=== PATIENT | male | born 1965 | race Caucasian/White ===

== ENCOUNTER 2017-03-11 05:29 | Inpatient (IN) | payer OTHER ==
[2017-03-05 16:33] VITALS: BMI 34.8
[~2017-03-11] VITALS: Ht 180.3 cm; Wt 111.4 kg
[2017-03-11] VITALS (28 sets, daily range): BP systolic 110–165; BP diastolic 64–89; PULSE 72–98; RESP 16–24; Ht 180.3 cm; Wt 111.4 kg
[2017-03-11] MEDS ORDERED: CEFAZOLIN 2 GM/50 ML (PMX) 50 ML IVPB ONE (06:00)
[2017-03-11] MEDS ORDERED: GELATIN SIZE 100 SPONGE ONE (06:51)
[2017-03-11] MEDS ORDERED: POLYMYXIN/BACITRACIN 1L IRRIG ONE (06:51)
[2017-03-11] MEDS ORDERED: BUPIVACAINE 0.25% (MPF) 30 ML INJ ONE (06:51)
[2017-03-11] MEDS ORDERED: THROMBIN 5000 UNIT VIAL ONE (06:51)
--- NOTE | 2017-03-11 06:53 | HPN ---
Date/Time of Note Date/Time of Note DATE: 03/11/17 TIME: 06:53 Interval H&P Admission Note Pt. seen H&P reviewed: No system changes MATHEW SHERMAN MD Mar 11, 2017 06:53
[2017-03-11] MEDS ORDERED: FENTAnyl 50 MCG/ML VIAL ONE (06:54)
[2017-03-11] MEDS ORDERED: CEFAZOLIN 1 GM INJ ONE (07:00)
[2017-03-11] MEDS ORDERED: ACET1TAB40 PO (07:21)
[2017-03-11] MEDS ORDERED: NAPR-773 PO (07:21)
[2017-03-11] MEDS ORDERED: LABETALOL HCL 20MG INJ ONE (07:35)
--- NOTE | 2017-03-11 08:01 | RADRPT ---
PROCEDURE: XR Lumbar Spine. CLINICAL INDICATION: Low back pain. TECHNIQUE: 1 lateral view of the lumbar spine available for review COMPARISON: None available FINDINGS: Surgical probe tips pointing at dorsal L4 and upper sacrum. IMPRESSION: Surgical probe tips pointing at dorsal L4 and upper sacrum. RPTAT: AA .Trever Cameron MD, Date Time Electronically viewed and signed by .Trever Cameron MD, on 03/11/2017 08:01 .T/
--- NOTE | 2017-03-11 08:03 | RADRPT ---
PROCEDURE: XR Lumbar Spine. CLINICAL INDICATION: Low back pain. TECHNIQUE: 1 lateral view of the lumbar spine available for review COMPARISON: None available FINDINGS: Surgical probes pointing at dorsal L3, L4, L5 with a surgical material overlying the expected locati on of the spinous processes. IMPRESSION: Surgical probes pointing at dorsal L3, L4, L5 with a surgical material overlying the expected locati on of the spinous processes. RPTAT: AA .Trever Cameron MD, MD Date Time Electronically viewed and signed by .Trever Cameron MD, on 03/11/2017 08:02 .T/
[2017-03-11] MEDS: RANITIDINE 150 MG TAB PO SCH ×3 (09:00→21:00)
[2017-03-11] MEDS ORDERED: LIDOCAINE 2% (SDV) 5 ML INJ ONE (09:42)
[2017-03-11] MEDS ORDERED: SUCCINYLCHOLINE CHLORIDE 100 MG/5 ML SYG IV ONE (09:42)
[2017-03-11] MEDS ORDERED: ROCURONIUM 50 MG INJ ONE (09:42)
[2017-03-11] MEDS ORDERED: SUGAMMADEX SODIUM 200 MG/2 ML VIAL IV ONE (09:42)
[2017-03-11] MEDS ORDERED: PROPOFOL 20 ML ONE (09:42)
[2017-03-11] MEDS ORDERED: ONDANSETRON 4 MG INJ IV PRN ×2 (10:00→10:30)
[2017-03-11] MEDS ORDERED: FENTAnyl 50 MCG/ML VIAL IV PRN ×3 (10:00)
[2017-03-11] MEDS ORDERED: METOCLOPRAMIDE 10 MG INJ IV PRN (10:00)
[2017-03-11] MEDS ORDERED: DIPHENHYDRAMINE 50 MG INJ IV PRN (10:00)
[2017-03-11] MEDS ORDERED: MEPERIDINE 25 MG INJ IV PRN (10:00)
[2017-03-11] MEDS ORDERED: HYDROmorphONE (0.2 MG/ML) 10ML SYG IV PRN ×2 (10:00)
[2017-03-11] MEDS: DEXTROSE 5%-0.45% NACL 1,000 ML IV SCH ×3 (10:25→22:26)
[2017-03-11] MEDS ORDERED: HYDROmorphONE 0.2 MG/ML PCA ONE (10:28)
[2017-03-11] MEDS ORDERED: ZOLPIDEM 5 MG TAB PO PRN (10:30)
[2017-03-11] MEDS ORDERED: ACETAMINOPHEN 325 MG TAB PO PRN (10:30)
[2017-03-11] MEDS ORDERED: AL HYDROX/MG HYDROX/SIMETH 30 ML CUP PO PRN (10:30)
[2017-03-11] MEDS ORDERED: HYDROmorphONE 0.2 MG/ML PCA IV SCH (10:30)
[2017-03-11] MEDS ORDERED: HYDROCODONE/APAP (5/325) TAB PO PRN (10:30)
[2017-03-11] MEDS ORDERED: DIAZEPAM 5 MG/ML SYG IM PRN (10:30)
[2017-03-11] MEDS ORDERED: BETHANECHOL 25 MG TAB PO PRN (10:30)
[2017-03-11] MEDS ORDERED: CEPASTAT LOZENGE MT PRN (10:30)
[2017-03-11] MEDS ORDERED: NACL 0.9% 3 ML SYG IV SCH (10:30)
[2017-03-11] MEDS: HYDROmorphONE (0.2 MG/ML) 10ML SYG IV PRN ×3 (10:30→11:02)
[2017-03-11] MEDS ORDERED: PROCHLORPERAZINE 10 MG TAB PO PRN (10:30)
[2017-03-11] MEDS ORDERED: DIPHENHYDRAMINE 50 MG CAP PO PRN (10:30)
[2017-03-11] MEDS ORDERED: TRIMETHOBENZAMIDE 100 MG/ML VIAL IM PRN (10:30)
[2017-03-11] MEDS ORDERED: NALOXONE (0.4 MG/ML) INJ IV PRN (10:30)
--- NOTE | 2017-03-11 10:45 | SIPON ---
Date/Time of Note Date/Time of Note DATE: 03/11/17 TIME: 10:29 Operative Report Preoperative Diagnosis Lumbar spinal stenosis at L3-L4 and L5 Herniated disc L4-5 on the right Postoperative Diagnosis Same Operation/Procedure Performed Central decompressive laminectomy at L3 Central decompressive laminectomy at L4 Central decompressive laminectomy at L5 Microdiscectomy L4-5 on the right Baxano foraminal decompression L4-5 on the right Medial facetectomy and foraminotomy L3-4 L4-5 L5-S1 bilaterally Cosmetic wound closure (12 cm) Lateral localizing lumbar radiographs (2) Intraoperative nerve monitoring (2-1/2 hours) Surgeon see signature line junior assistant manager Solomon Rios MD Anesthesia: general Estimated blood loss: 50 - 100 ml's Transfusion Required none Specimen Spinous processes of L3-L4 and L5 Herniated disc L4-5 on the right Grafts/Implants none Complications none MATHEW SHERMAN MD Mar 11, 2017 10:39
--- NOTE | 2017-03-11 11:15 | OPR ---
DATE OF OPERATION: 03/11/2017 PREOPERATIVE DIAGNOSES: 1. Lumbar spinal stenosis at L3, L4, and L5. 2. Herniated disk L4-L5 on the right (foraminal). 3. Foraminal stenosis L4-L5 on the right. POSTOPERATIVE DIAGNOSES: 1. Lumbar spinal stenosis at L3, L4, and L5. 2. Herniated disk L4-L5 on the right (foraminal). 3. Foraminal stenosis L4-L5 on the right. OPERATION PERFORMED: 1. Central decompressive laminectomy at L3. 2. Central decompressive laminectomy at L4. 3. Central decompressive laminectomy at L5. 4. Microdiskectomy, L4-L5 on the right. 5. Baxano transforaminal root decompression L4 on the right. 6. Medial facetectomy and foraminotomy, L3-L4, L4-L5, L5-S1 bilaterally. 7. Cosmetic wound closure (12 cm). 8. Lateral localized lumbar radiographs (2). 9. Intraoperative nerve monitoring (2.5 hours) SURGEON: Christian Sim MD FISHERIES ENFORCEMENT OFFICER: Zak Black MD ANESTHESIA: General endotracheal. ANESTHESIOLOGIST: Dr. Pantoja ESTIMATED BLOOD LOSS: 75 mL, none replaced. DRAINS: Two medium Hemovac drains employed. COMPLICATIONS: None. PERTINENT HISTORY AND PHYSICAL: This is a 51-year-old male who sustained an injury to his back in t he course of his employment on 01/21/2016. He has had extensive conservative care since that time, has remained symptomatic with moderately severe back and bilateral leg complaints, right greater th an left, which have been unrelieved by conservative management. He has undergone a number of diagno stic studies including an MRI of the lumbar spine, which demonstrated lumbar spinal stenosis at L3, L4, and L5 with marked foraminal stenosis at L4-L5 on the right and a foraminal disk herniation at L 4-L5 on the right. Treatment options were discussed with the patient, who elected to proceed with surgery. OPERATIVE FINDINGS AT SURGERY: A lumbar spinal stenosis at L3 (moderately severe) and the lateral r ecesses at L4 and L5 were present. There was a herniation at L4-L5 on the right. There was some ce ntral left-sided disk bulging at L5-S1 that did not merit removal. The baseline intraoperative nerv e monitoring revealed a decrease in the left L3 potential of 40%, the right L3 potential of 20%, the right L4 potential of 50%, the left L5 potential of 20%, the right L5 potential of 40%. These all returned to normal at the completion of surgery. OPERATIVE PROCEDURE: With the patient in supine position after satisfactory induction of general en dotracheal anesthesia by Dr. Pantoja, the patient was turned to the prone kneeling position on the Lamy frame. All pressure points were carefully padded. Back was prepped and draped in usual s terile fashion. Athrombic pumps were applied to the legs below the knees to prevent venous stasis d uring and after procedure. An indwelling Alvarez catheter was also placed preoperatively to facilitat e bladder drainage during and after the procedure. Two spinal needles were placed next to the L3 an d L5 spinous processes, lateral roentgenogram was taken which confirmed anatomic localization. A 12 cm incision then carried out midline from L3 to sacrum through skin and subcutaneous tissue to the deep fascia. Superficial retractors were placed and hemostasis secured with electrocautery. Throug hout the procedure, copious amounts of antibacterial irrigating solution were used to periodically i rrigate the wound. The fascia was incised in midline with a hot knife and a bilateral subperiosteal dissection carried out from L3 to sacrum. Deep retractors were placed and deep hemostasis secured with electrocautery. A second intraoperative radiograph was taken with Jack clamps placed in what was felt to be the spinous process of L3, L4, and L5. This was confirmed with second x-ray. A casi tral decompressive laminectomy was then carried out at L5, L4 and L3 using a Shira right-angle ele zavala rongeur, Jacinto rongeur, Kerrison punches and curettes. The operating microscope was then moved into place. A medial facetectomy and foraminotomy was accomplished at L3-L4, L4-L5, and L5-S1 using small hand osteotome, mallet, Kerrison punches and curettes. Attention was then turned to the L4-L5 disk where the L5 root on the right was mobilized medially wi th a blunt [place] elevator and protected with Ely nerve root retractor using microdissection max hnique. This revealed a herniation of the L4-L5 disk. A 15 blade knife was used to cut a rectangul ar window in the annulus and posterior longitudinal ligament and multiple degenerative disk fragment s were harvested with pituitary rongeurs and sent to laboratory for pathologic study. Additional fr agments were harvested using Susan curettes and a 0 Anca forward angled curet. A thorough searc h of the floor of the canal was made with an arthroscopic probe. No additional fragments were encou ntered. The epidural hemostasis was secured with bipolar electrocautery on low setting. The L5-S1 disk on the left was inspected, but was somewhat bulging, but not herniated and did not merit remova l. The foramen at L4 on the right was still somewhat stenotic at this point and the Baxano instrume ntation was brought onto the field. The Ipsi probe was placed into the foramen, and the guidewire p assed in the usual fashion. The neuro probe was then used to isolate the exiting L4 nerve root. Wi th this having been assured, the 7.5 mm Baxano rasp was inserted into the foramen and multiple recip rocations carried out to enlarge the posterior aspect of the foramen. The instrumentation was withd rawn. The foramen was flooded with 20 mL of irrigating solution and hemostasis was once again to ob tain with bipolar electrocautery on low setting. The wound was then closed in layers after the anes thesiologist performed a Valsalva maneuver at 40 mmHg during which there was no evidence of spinal f luid leakage. The wound was closed over 2 medium Hemovac drains, one below the fascia and one above the fascia using #1 Vicryl Stratafix sutures in deep paralumbar musculature and deep fascia of back , 2-0 Stratafix sutures on the subcutaneous tissue, and a 4-0 Vicryl subcuticular cosmetic closing s uture on the skin. Dermabond and sterile compressive dressings were applied. Patient having tolera asuncion procedure well, was then turned to supine position onto his bed and extubated by Dr. Pantoja. He was transported to the recovery room in satisfactory condition. At the conclusion of the proced ure, sponge, instrument, and needle counts were all correct. NEED FOR BENCH EXAMINER: During this spinal surgical procedure, my sales assistant entertainment and media was used to retrac t and protect the spinal nerves and dural sac. My sales assistant entertainment and media also employed the suction catheters to e vacuate blood from the surgical field to improve visualization of the neural structures. The assista nt was medically necessary to facilitate the completion of the surgery in a safe and expeditious man ner. State of [place] regulations, as well as hospital bylaws, preclude the use of non-licensed [facility] care personnel such as operating room technicians, to perform these functions. Throughout the procedure, neural monitoring was carried out by [employer] including EMG, SSEP and MEP monitoring of the L3, L4, L5 and S1 nerve roots bilaterally along with s meghana cord potentials. These were interpreted by neurologist employed by [employer]. Dictated By: CHRISTIAN SIM MD TM/NTS Conf#: [id number] DID#: [id number] CC: ZAK BLACK MD; RAYSA CALL MD; CHRISTIAN SIM MD;*End*
[2017-03-11] MEDS: CEFAZOLIN 1 GM/50 ML (PMX) 50 ML IVPB SCH ×2 (11:53→17:46)
--- NOTE | 2017-03-11 14:15 | CONS ---
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 Monitor (2) Lumbar spinal stenosis Status: Resolved Comment: Per primary team (3) Lumbar herniated disc Status: Resolved Comment: Per primary team (4) Aftercare following surgery of the musculoskeletal system Status: Acute Comment: Doing well, POD#0. Cont. current care. Will monitor for medical issues should they arise. Defer to primary team for PT and pain management. Will follow. Consultation Date/Type/Reason Admit Date/Time Mar 11, 2017 at 05:29 Date of Consultation: Mar 11, 2017 Type of Consultation: Medicine Reason for Consultation Medical Management Referring Provider: MATHEW SHERMAN Hx of Present Illness Pt. in [facility] until 1 y. ago when he was at work and someone accidently dropped a fiberglass mold on him. Twisted his ankle which has healed but he has had problems w/ back since then. Pt. has been through PT and pain meds. Had 2 MRI' s/ Showed both spinal stenosis and HD. Now s/p L3-L5 lumbar lami w/ microdiskectomy L5-S1. POD#0. Legs feel better. No complaints. Constitutional: improved, no complaints Eyes: no complaints ENT: no complaints Respiratory: no complaints Cardiovascular: no complaints Gastrointestinal: no complaints Genitourinary: no complaints Musculoskeletal: back pain Neurologic: no complaints Past Medical History Medical History: no pertinent history Past Surgical History Past Surgical Hx: no surgical history Family History Significant Family History: heart disease (father), other (Alzheimer's in mother) Social History chastity. [place], in [employer] since 1981, works as business office manager of [employer] , , 4 children Alcohol Use: occasionally Smoking Status: Never smoker Drug Use: none Exam/Review of Systems Vital Signs Vitals VS - Last 72 Hours, by Label Date Time Temp Pulse Resp B/P Pulse Ox O2 Delivery O2 Flow Rate FiO2 03/11/17 12:00 Nasal Cannula 2.0 03/11/17 11:45 97.9 91 18 130/78 98 03/11/17 11:29 92 19 128/73 95 Nasal Cannula 4.0 03/11/17 11:24 94 20 134/84 91 Nasal Cannula 4.0 03/11/17 11:19 98 16 146/80 97 Nasal Cannula 4.0 03/11/17 11:14 96 20 146/86 97 Nasal Cannula 4.0 03/11/17 11:09 94 19 140/86 98 Nasal Cannula 4.0 03/11/17 11:04 94 19 147/86 96 Nasal Cannula 4.0 03/11/17 10:59 92 21 135/89 96 Nasal Cannula 4.0 03/11/17 10:54 92 22 131/77 95 Nasal Cannula 4.0 03/11/17 10:49 92 23 131/73 93 Nasal Cannula 4.0 03/11/17 10:44 88 19 121/84 93 Nasal Cannula 4.0 03/11/17 10:39 82 16 120/83 100 Mask 10.0 03/11/17 10:34 82 21 126/78 98 Mask 10.0 03/11/17 10:29 84 24 114/81 99 Mask 10.0 03/11/17 10:23 88 24 133/80 100 Mask 10.0 03/11/17 10:19 98.4 03/11/17 10:18 92 17 129/76 97 Mask 10.0 03/11/17 10:15 Simple Mask 8.0 03/11/17 10:15 97.9 88 18 128/74 100 Mask 10.0 03/11/17 07:03 97.4 72 18 133/71 100 Room Air Vital Signs Date Time Temp Pulse Resp B/P Pulse Ox O2 Delivery O2 Flow Rate FiO2 03/11/17 12:00 Nasal Cannula 2.0 03/11/17 11:45 97.9 91 18 130/78 98 Exam Constitutional: alert, obese, oriented Psych: nl mood/affect, no complaints Eyes: EOMI, PERRL, nl conjunctiva, nl lids, nl sclera ENMT: mucosa pink and moist, nl external ears & nose Neck: non-tender, supple, No bruits, No masses, No thyromegaly Respiratory: clear to auscultation, normal air movement Cardiovascular: nl pulses, regular rate and rhythm, No edema, No murmurs/extra sounds, No rub Gastrointestinal: bowel sounds, nl liver, spleen, non-tender, soft, No mass, No rebound or guarding Musculoskeletal: nl extremities to inspection Extremities: normal pulses, No clubbing, No cyanosis, No edema Neurological: SENIOR C SOFTWARE ENGINEER II-XII intact, nl mental status, nl speech, nl strength Medications Medications Current Medications Ranitidine HCl 150 mg 150 mg BID PO ; Start 03/11/17 at 09:00 Dextrose/Sodium Chloride (D5-1/2ns) 1,000 ml @ 100 mls/hr Q10H IV Last administered on 03/11/17 11:54; Admin Dose 100 MLS/HR; Start 03/11/17 at 10: 25 Acetaminophen/ Hydrocodone Bitart ([place] (5/325)) 1 tab Q4H PRN PO PAIN LEVEL 1 -5; Start 03/11/17 at 10:30; Status Future Hold Acetaminophen/ Hydrocodone Bitart 2 tab 2 tab Q4H PRN PO PAIN LEVEL 6-10; Start 03/11/17 at 10:30; Status Future Hold Cefazolin Sodium (Ancef 1 Gm/50 ml (Pmx)) 50 ml @ 100 mls/hr Q6 IVPB Last administered on 03/11/17 11:53; Admin Dose 100 MLS/HR; Start 03/11/17 at 12: 00; Stop 03/12/17 at 06:29 Zolpidem Tartrate (Ambien) 5 mg HS PRN PO INSOMNIA; Start 03/11/17 at 10:30 Prochlorperazine (Compazine) 10 mg Q4H PRN PO NAUSEA AND/OR VOMITING; Start at 10:30 Trimethobenzamide HCl (Tigan) 200 mg Q4H PRN IM NAUSEA AND/OR VOMITING; Start 03/11/17 at 10:30 Ondansetron HCl (Zofran Inj) 4 mg Q6H PRN IV NAUSEA AND/OR VOMITING; Start at 10:30 Al Hydrox/Mg Hydrox/Simethicone (Mag-Al Plus) 15 ml Q4H PRN PO CONSTIPATION; Start 03/11/17 at 10:30 Docusate Sodium (Colace) 100 mg BID PO ; Start 03/12/17 at 09:00 Acetaminophen (Tylenol Tab) 650 mg Q4H PRN PO TEMP GREATER THAN 101F OR WELCH; Start 03/11/17 at 10:30 Ascorbic Acid (Vitamin C) 1,000 mg BID PO ; Start 03/12/17 at 09:00 Ferrous Sulfate (Ferrous Sulfate (Ec)) 325 mg TID PO ; Start 03/12/17 at 09:00 Ranitidine HCl (Zantac) 150 mg BID PO ; Start 03/11/17 at 21:00 Diazepam (Valium) 5 mg Q4H PRN PO MUSCLE SPASMS; Start 03/11/17 at 10:30 Diazepam (Valium) 5 mg Q4H PRN IM MUSCLE SPASMS; Start 03/11/17 at 10:30 Phenol (Cepastat Lozenge) 1 lozenge PRN PRN MT SORE THROAT Last administered on 03/11/17 11:54; Admin Dose 1 LOZENGE; Start 03/11/17 at 10:30 Bethanechol Chloride (Urecholine) 25 mg PRN PRN PO UNABLE TO VOID; Start 03/11 at 10:30 Diphenhydramine HCl (Benadryl) 50 mg Q6H PRN PO PRURITUS; Start 03/11/17 at 10 :30 Hydromorphone HCl (Dilaudid REGISTER REPAIRER) Q4PCA IV Last administered on 03/11/17 11: 12; Admin Dose 6 MG; Start 03/11/17 at 10:30 Naloxone HCl (Narcan) 0.2 mg Q2M PRN IV RR 8 BREATHS/MIN OR LESS; Start at 10:30 RAYSA CALL MD Mar 11, 2017 14:15
[2017-03-11] MEDS: DIAZEPAM 5 MG TAB PO PRN ×2 (15:58→20:45)
[2017-03-12 00:14] VITALS: BP 117/65; RESP 18
[2017-03-12] MEDS: CEFAZOLIN 1 GM/50 ML (PMX) 50 ML IVPB SCH ×2 (01:25→05:58)
[2017-03-12] MEDS: DEXTROSE 5%-0.45% NACL 1,000 ML IV SCH ×2 (05:58→16:25)
[2017-03-12 06:24] LABS: HEMATOCRIT 42.7 % (42.0-52.0); HEMOGLOBIN 14.1 g/dl (14.0-18.0)
[2017-03-12 06:56] LABS: CALCIUM 8.5 mg/dl (8.4-10.2); CREATININE 0.86 mg/dl (0.61-1.24); POTASSIUM 3.8 mmol/L (3.5-5.1)
--- NOTE | 2017-03-12 07:02 | PN ---
Date/Time of Note Date/Time of Note DATE: 03/12/17 TIME: 07:01 Assessment/Plan Lines/Catheters IV Catheter Type (from Nrs): Peripheral IV Alvarze in Place (from Nrsg): Yes Subjective 24 Hr Interval Summary The patient is postop day #1 following a multilevel decompressive laminectomy from L3 to the sacrum. He is resting comfortably in bed. Neurovascular structures are intact distally. His H&H is unremarkable, and BMP is pending. His Hemovac output was 80 cc this morning and will be left in place. He will be mobilized as tolerated by physical therapy. Exam/Review of Systems Vital Signs Vitals Vital Signs Date Time Temp Pulse Resp B/P Pulse Ox O2 Delivery O2 Flow Rate FiO2 03/12/17 00:14 98.3 87 18 117/65 96 03/11/17 20:00 Nasal Cannula 03/11/17 14:45 2.0 Intake and Output 03/11/17 03/11/17 03/12/17 15:00 23:00 07:00 Intake Total 1550 ml 1990 ml 1490 ml Output Total 315 ml 900 ml 2180 ml Balance 1235 ml 1090 ml -690 ml Results Result Diagram: 03/12/17 0500 MATHEW SHERMAN MD Mar 12, 2017 07:02
[2017-03-12 08:00] VITALS: BP 131/68; RESP 18
[2017-03-12] MEDS ORDERED: BETHANECHOL 25 MG TAB PO PRN (08:00)
[2017-03-12] MEDS: ASCORBIC ACID 500 MG TAB PO SCH ×2 (08:44→20:02)
[2017-03-12] MEDS: DOCUSATE SODIUM 100 MG CAP PO SCH ×2 (08:45→20:01)
[2017-03-12] MEDS: FERROUS SULFATE (EC) 325 MG TAB PO SCH ×3 (08:45→20:01)
[2017-03-12] MEDS: RANITIDINE 150 MG TAB PO SCH ×4 (08:45→21:00)
[2017-03-12 09:36] LABS: ADD UMIC YES; UR ASCORBIC ACID NEGATIVE (NEGATIVE); UR BILIRUBIN (Dip) NEGATIVE (NEGATIVE); UR BLOOD (Dip) 1+ mg/dL (NEGATIVE); UR CLARITY CLEAR (CLEAR); UR COLOR STRAW (YELLOW); UR GLUCOSE (Dip) NEGATIVE (NEGATIVE); UR KETONES (Dip) NEGATIVE (NEGATIVE); UR LEUKOCYTE ESTERASE (Dip) NEGATIVE Leu/ul (NEGATIVE); UR MUCUS FEW /HPF (NONE SEEN); UR NITRITE (Dip) NEGATIVE (NEGATIVE); UR RBC 3 /HPF (0-5); UR SPECIFIC GRAVITY (Dip) 1.009 (1.003-1.030); UR TOTAL PROTEIN (Dip) NEGATIVE (NEGATIVE); UR UROBILINOGEN (Dip) NEGATIVE (NEGATIVE)
[2017-03-12] MEDS: ALLOPURINOL 300 MG TAB PO SCH (10:11)
[2017-03-12] MEDS ORDERED: COLCHICINE 0.6 MG TAB PO ONE ×2 (13:00→14:00)
--- NOTE | 2017-03-12 13:06 | CONS ---
Date/Time of Note Date/Time of Note DATE: 03/12/17 TIME: 13:01 Assessment/Plan Assessment/Plan Problems: (1) Hyperuricemia without signs of inflammatory arthritis and tophaceous disease Status: Chronic Comment: Started allopurinol this am. Immediate pain in R ankle. Possibly represents a gout acute flare. Will start colchicine 1.2 mg x 1 now, then 0.6 mg x 1 in 1 hour. Cont. colchicine 0.6 mg po daily starting tomorrow morning. (2) Aftercare following surgery of the musculoskeletal system Status: Acute Comment: Doing fair on POD#1. Still on ALL SOURCE INTELLIGENCE. Likely to be d/c'ed later. Prob. d/c tomorrow if o/w doing well. Consultation Date/Type/Reason Admit Date/Time Mar 11, 2017 at 05:29 Initial Consult Date 03/11/17 Type of Consultation: Medicine Reason for Consultation Medical management Referring Provider: MATHEW SHERMAN MD 24 HR Interval Summary Constitutional: improved, no complaints Detailed Summary Respiratory: no complaints Cardiovascular: no complaints Gastrointestinal: no complaints Genitourinary: no complaints Musculoskeletal: back pain, bone/joint pain (acute pain in R ankle, worse w/ walking) Neurologic: no complaints Exam/Review of Systems Vital Signs Vitals VS - Last 72 Hours, by Label Date Time Temp Pulse Resp B/P Pulse Ox O2 Delivery O2 Flow Rate FiO2 03/12/17 09:00 18 03/12/17 08:00 Nasal Cannula 2.0 03/12/17 08:00 97.8 66 18 131/68 100 03/12/17 00:14 98.3 87 18 117/65 96 03/11/17 20:33 98.6 65 18 110/64 98 03/11/17 20:00 Nasal Cannula 03/11/17 18:20 97.0 69 20 165/85 96 03/11/17 14:45 98.0 79 18 128/71 96 Nasal Cannula 2.0 03/11/17 14:40 98.9 76 18 121/70 97 03/11/17 13:45 97.9 84 18 133/68 96 Nasal Cannula 2.0 03/11/17 13:15 97.9 86 18 135/67 96 Nasal Cannula 2.0 03/11/17 12:45 97.8 78 18 126/72 96 Nasal Cannula 2.0 03/11/17 12:30 97.9 75 18 118/67 96 Nasal Cannula 2.0 03/11/17 12:15 97.9 87 18 120/67 96 Nasal Cannula 2.0 03/11/17 12:00 Nasal Cannula 2.0 03/11/17 12:00 97.9 73 18 118/71 96 Nasal Cannula 2.0 03/11/17 11:45 97.9 82 18 123/69 96 Nasal Cannula 2.0 03/11/17 11:45 97.9 91 18 130/78 98 03/11/17 11:29 92 19 128/73 95 Nasal Cannula 4.0 03/11/17 11:24 94 20 134/84 91 Nasal Cannula 4.0 03/11/17 11:19 98 16 146/80 97 Nasal Cannula 4.0 03/11/17 11:14 96 20 146/86 97 Nasal Cannula 4.0 03/11/17 11:09 94 19 140/86 98 Nasal Cannula 4.0 03/11/17 11:04 94 19 147/86 96 Nasal Cannula 4.0 03/11/17 10:59 92 21 135/89 96 Nasal Cannula 4.0 03/11/17 10:54 92 22 131/77 95 Nasal Cannula 4.0 03/11/17 10:49 92 23 131/73 93 Nasal Cannula 4.0 03/11/17 10:44 88 19 121/84 93 Nasal Cannula 4.0 03/11/17 10:39 82 16 120/83 100 Mask 10.0 03/11/17 10:34 82 21 126/78 98 Mask 10.0 03/11/17 10:29 84 24 114/81 99 Mask 10.0 03/11/17 10:23 88 24 133/80 100 Mask 10.0 03/11/17 10:19 98.4 03/11/17 10:18 92 17 129/76 97 Mask 10.0 03/11/17 10:15 Simple Mask 8.0 03/11/17 10:15 97.9 88 18 128/74 100 Mask 10.0 03/11/17 07:03 97.4 72 18 133/71 100 Room Air Vital Signs Date Time Temp Pulse Resp B/P Pulse Ox O2 Delivery O2 Flow Rate FiO2 03/12/17 09:00 18 03/12/17 08:00 Nasal Cannula 2.0 03/12/17 08:00 97.8 66 131/68 100 Intake and Output 03/11/17 03/11/17 03/12/17 14:59 22:59 06:59 Intake Total 1550 ml 1990 ml 1490 ml Output Total 315 ml 900 ml 2180 ml Balance 1235 ml 1090 ml -690 ml Exam Constitutional: alert, obese, oriented Psych: nl mood/affect, no complaints Respiratory: clear to auscultation, normal air movement Cardiovascular: nl pulses, regular rate and rhythm, No edema, No murmurs/extra sounds, No rub Gastrointestinal: bowel sounds, nl liver, spleen, non-tender, soft, No mass, No rebound or guarding Musculoskeletal: joint tenderness (R ankle) Extremities: No clubbing, No cyanosis, No edema Neurological: CYCLE DIRECTOR II-XII intact, nl mental status, nl speech, nl strength Results Result Diagram: 03/12/17 0500 03/12/17 0500 Results 24 hrs Laboratory Tests Test 03/12/17 05:00 03/12/17 08:43 Hemoglobin 14.1 Hematocrit 42.7 Sodium Level 139 Potassium Level 3.8 Chloride Level 101 Carbon Dioxide Level 29 Anion Gap 13 Blood Urea Nitrogen 8 Creatinine 0.86 Glucose Level 110 Calcium Level 8.5 Urine Color STRAW Urine Clarity CLEAR Urine pH 6.0 Urine Specific [place] 1.009 Urine Ketones NEGATIVE Urine Nitrite NEGATIVE Urine Bilirubin NEGATIVE Urine Urobilinogen NEGATIVE Urine Leukocyte Esterase NEGATIVE Urine Microscopic RBC 3 Urine Microscopic WBC 1 Urine Mucus FEW A Urine Hemoglobin 1+ H Urine Glucose NEGATIVE Urine Total Protein NEGATIVE Medications Medications Current Medications Ranitidine HCl 150 mg 150 mg BID PO Last administered on 03/12/17 08:45; Admin Dose 150 MG; Start 03/11/17 at 09:00 Dextrose/Sodium Chloride (D5-1/2ns) 1,000 ml @ 100 mls/hr Q10H IV Last administered on 03/12/17 05:58; Admin Dose 100 MLS/HR; Start 03/11/17 at 10: 25 Acetaminophen/ Hydrocodone Bitart ([place] (5/325)) 1 tab Q4H PRN PO PAIN LEVEL 1 -5; Start 03/11/17 at 10:30; Status Future Hold Acetaminophen/ Hydrocodone Bitart ([place] (5/325)) 2 tab Q4H PRN PO PAIN LEVEL 6 -10; Start 03/11/17 at 10:30; Status Future Hold Zolpidem Tartrate (Ambien) 5 mg HS PRN PO INSOMNIA; Start 03/11/17 at 10:30 Prochlorperazine (Compazine) 10 mg Q4H PRN PO NAUSEA AND/OR VOMITING; Start at 10:30 Trimethobenzamide HCl (Tigan) 200 mg Q4H PRN IM NAUSEA AND/OR VOMITING; Start 03/11/17 at 10:30 Ondansetron HCl (Zofran Inj) 4 mg Q6H PRN IV NAUSEA AND/OR VOMITING; Start at 10:30 Al Hydrox/Mg Hydrox/Simethicone (Mag-Al Plus) 15 ml Q4H PRN PO CONSTIPATION; Start 03/11/17 at 10:30 Docusate Sodium (Colace) 100 mg BID PO Last administered on 03/12/17 08:45; Admin Dose 100 MG; Start 03/12/17 at 09:00 Acetaminophen (Tylenol Tab) 650 mg Q4H PRN PO TEMP GREATER THAN 101F OR WELCH; Start 03/11/17 at 10:30 Ascorbic Acid (Vitamin C) 1,000 mg BID PO Last administered on 03/12/17 08:44 ; Admin Dose 1,000 MG; Start 03/12/17 at 09:00 Ferrous Sulfate (Ferrous Sulfate (Ec)) 325 mg TID PO Last administered on 03/12 08:45; Admin Dose 325 MG; Start 03/12/17 at 09:00 Ranitidine HCl (Zantac) 150 mg BID PO ; Start 03/11/17 at 21:00 Diazepam (Valium) 5 mg Q4H PRN PO MUSCLE SPASMS Last administered on 20:45; Admin Dose 5 MG; Start 03/11/17 at 10:30 Diazepam (Valium) 5 mg Q4H PRN IM MUSCLE SPASMS; Start 03/11/17 at 10:30 Phenol (Cepastat Lozenge) 1 lozenge PRN PRN MT SORE THROAT Last administered on 03/11/17 11:54; Admin Dose 1 LOZENGE; Start 03/11/17 at 10:30 Diphenhydramine HCl (Benadryl) 50 mg Q6H PRN PO PRURITUS; Start 03/11/17 at 10 :30 Hydromorphone HCl (Dilaudid ALL SOURCE INTELLIGENCE) Q4PCA IV Last administered on 03/11/17 11: 12; Admin Dose 6 MG; Start 03/11/17 at 10:30 Naloxone HCl (Narcan) 0.2 mg Q2M PRN IV RR 8 BREATHS/MIN OR LESS; Start at 10:30 Bethanechol Chloride (Urecholine) 25 mg PRN PRN PO UNABLE TO VOID Last administered on 03/12/17 08:46; Admin Dose 25 MG; Start 03/12/17 at 08:00 Allopurinol (Zyloprim) 300 mg DAILY PO Last administered on 03/12/17 10:11; Admin Dose 300 MG; Start 03/12/17 at 09:00 RAYSA CALL MD Mar 12, 2017 13:05
[2017-03-12 14:26] VITALS: BP 128/70; RESP 18
[2017-03-12] MEDS: HYDROCODONE/APAP (5/325) TAB PO PRN ×2 (17:13→23:54)
[2017-03-12 19:50] VITALS: BP 113/60; RESP 18
[2017-03-13] MEDS ORDERED: COLCHICINE 0.6 MG TAB PO ONE (00:30)
[2017-03-13 02:06] VITALS: BP 119/57; RESP 18
[2017-03-13] MEDS: DEXTROSE 5%-0.45% NACL 1,000 ML IV SCH ×2 (02:25→12:25)
--- NOTE | 2017-03-13 07:04 | PN ---
Date/Time of Note Date/Time of Note DATE: 03/13/17 TIME: 07:00 Assessment/Plan Lines/Catheters IV Catheter Type (from Nrsg): Peripheral IV Alvarez in Place (from Nrsg): No Subjective 24 Hr Interval Summary Patient is postop day #2 following a multilevel decompressive laminectomy from L3 to the sacrum. He is resting comfortably in bed. He has some pain and swelling in his right ankle. He has been started on anti-gout medication, and feels that his ankle is improving. Neurovascular structures are intact distally. He will be mobilized as tolerated by physical therapy. I anticipate he can be discharged home later today if cleared by physical therapy and internal medicine. Strict discharge precautions instructions and follow-up arrangements have been made. His temperature this morning was 99.7, and we will observe her carefully Exam/Review of Systems Vital Signs Vitals Vital Signs Date Time Temp Pulse Resp B/P Pulse Ox O2 Delivery O2 Flow Rate FiO2 03/13/17 02:06 99.7 72 18 119/57 94 03/12/17 20:20 Nasal Cannula 2.0 Intake and Output 03/12/17 03/12/17 03/13/17 15:00 23:00 07:00 Intake Total 1880 ml 800 ml Output Total 2700 ml 1500 ml Balance -820 ml -700 ml Results Result Diagram: 03/12/17 0500 03/12/17 0500 MATHEW SHERMAN MD Mar 13, 2017 07:04
[2017-03-13 07:12] VITALS: BP 114/60; RESP 18
[2017-03-13] MEDS: ALLOPURINOL 300 MG TAB PO SCH (08:45)
[2017-03-13] MEDS: FERROUS SULFATE (EC) 325 MG TAB PO SCH ×2 (08:46→13:00)
[2017-03-13] MEDS: DOCUSATE SODIUM 100 MG CAP PO SCH (08:46)
[2017-03-13] MEDS: ASCORBIC ACID 500 MG TAB PO SCH (08:46)
[2017-03-13] MEDS: RANITIDINE 150 MG TAB PO SCH ×2 (08:46→08:47)
[2017-03-13] MEDS: HYDROCODONE/APAP (5/325) TAB PO PRN ×2 (08:46→12:51)
[2017-03-13] MEDS ORDERED: COLCHICINE 0.6 MG TAB PO SCH (09:00)
[2017-03-13 12:51] VITALS: BP 126/71; PULSE 79; RESP 20
[2017-03-13] MEDS ORDERED: Colchicine PO (13:36)
[2017-03-13] MEDS ORDERED: ALLO300T2 PO (13:36)
--- NOTE | 2017-03-13 13:41 | CONS ---
Date/Time of Note Date/Time of Note DATE: 03/13/17 TIME: 13:37 Assessment/Plan Assessment/Plan Problems: (1) Drug-induced gout, right ankle and foot Status: Acute Comment: Responding to colchicine. Will continue this as outpt. bid. 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 allopurinol. Once colchicine resolves, hopefully allopurinol will prevent repeat attack (3) Aftercare following surgery of the musculoskeletal system Status: Acute Comment: Doing well POD#2. Ambulating. Tolerating surgical outcome well. Feels improved. Ok for d/c from med standpoint if ok w/ primary team Consultation Date/Type/Reason Admit Date/Time Mar 11, 2017 at 05:29 Initial Consult Date 03/11/17 Type of Consultation: Medicine Reason for Consultation Medical Management Referring Provider: MATHWE SHERMAN MD 24 HR Interval Summary Constitutional: improved (able to ambulate), no complaints Detailed Summary Respiratory: no complaints Cardiovascular: no complaints Gastrointestinal: no complaints Genitourinary: no complaints Musculoskeletal: back pain (minimal, well-controlled), bone/joint pain (R medial ankle, improved since yesterday, colchicine helpful) Neurologic: no complaints Exam/Review of Systems Vital Signs Vitals VS - Last 72 Hours, by Label Date Time Temp Pulse Resp B/P Pulse Ox O2 Delivery O2 Flow Rate FiO2 03/13/17 07:12 98.6 75 18 114/60 94 03/13/17 02:06 99.7 72 18 119/57 94 03/12/17 20:20 Nasal Cannula 2.0 03/12/17 19:50 98.8 78 18 113/60 98 03/12/17 17:19 16 03/12/17 14:26 98.0 70 18 128/70 96 03/12/17 13:00 18 03/12/17 09:00 18 03/12/17 08:00 Nasal Cannula 2.0 03/12/17 08:00 97.8 66 18 131/68 100 03/12/17 00:14 98.3 87 18 117/65 96 03/11/17 20:33 98.6 65 18 110/64 98 03/11/17 20:00 Nasal Cannula 03/11/17 18:20 97.0 69 20 165/85 96 03/11/17 14:45 98.0 79 18 128/71 96 Nasal Cannula 2.0 03/11/17 14:40 98.9 76 18 121/70 97 03/11/17 13:45 97.9 84 18 133/68 96 Nasal Cannula 2.0 03/11/17 13:15 97.9 86 18 135/67 96 Nasal Cannula 2.0 03/11/17 12:45 97.8 78 18 126/72 96 Nasal Cannula 2.0 03/11/17 12:30 97.9 75 18 118/67 96 Nasal Cannula 2.0 03/11/17 12:15 97.9 87 18 120/67 96 Nasal Cannula 2.0 03/11/17 12:00 Nasal Cannula 2.0 03/11/17 12:00 97.9 73 18 118/71 96 Nasal Cannula 2.0 03/11/17 11:45 97.9 82 18 123/69 96 Nasal Cannula 2.0 03/11/17 11:45 97.9 91 18 130/78 98 03/11/17 11:29 92 19 128/73 95 Nasal Cannula 4.0 03/11/17 11:24 94 20 134/84 91 Nasal Cannula 4.0 03/11/17 11:19 98 16 146/80 97 Nasal Cannula 4.0 03/11/17 11:14 96 20 146/86 97 Nasal Cannula 4.0 03/11/17 11:09 94 19 140/86 98 Nasal Cannula 4.0 03/11/17 11:04 94 19 147/86 96 Nasal Cannula 4.0 03/11/17 10:59 92 21 135/89 96 Nasal Cannula 4.0 03/11/17 10:54 92 22 131/77 95 Nasal Cannula 4.0 03/11/17 10:49 92 23 131/73 93 Nasal Cannula 4.0 03/11/17 10:44 88 19 121/84 93 Nasal Cannula 4.0 03/11/17 10:39 82 16 120/83 100 Mask 10.0 03/11/17 10:34 82 21 126/78 98 Mask 10.0 03/11/17 10:29 84 24 114/81 99 Mask 10.0 03/11/17 10:23 88 24 133/80 100 Mask 10.0 03/11/17 10:19 98.4 03/11/17 10:18 92 17 129/76 97 Mask 10.0 03/11/17 10:15 Simple Mask 8.0 03/11/17 10:15 97.9 88 18 128/74 100 Mask 10.0 03/11/17 07:03 97.4 72 18 133/71 100 Room Air Vital Signs Date Time Temp Pulse Resp B/P Pulse Ox O2 Delivery O2 Flow Rate FiO2 03/13/17 07:12 98.6 75 18 114/60 94 03/12/17 20:20 Nasal Cannula 2.0 Intake and Output 03/12/17 03/12/17 03/13/17 15:00 23:00 07:00 Intake Total 1880 ml 800 ml Output Total 2700 ml 1500 ml Balance -820 ml -700 ml Exam Constitutional: alert, obese, oriented Psych: nl mood/affect, no complaints Respiratory: clear to auscultation, normal air movement Cardiovascular: nl pulses, regular rate and rhythm, No edema, No murmurs/extra sounds, No rub Gastrointestinal: bowel sounds, nl liver, spleen, non-tender, soft, No mass, No rebound or guarding Musculoskeletal: joint tenderness (R medial ankle, (+) pain w/ passive movement ), swelling (and redness of R medial ankle), No nl extremities to inspection Extremities: normal pulses, No clubbing, No cyanosis, No edema Neurological: TAPE DUPLICATOR II-XII intact, nl mental status, nl speech, nl strength Results Result Diagram: 03/12/17 0500 03/12/17 0500 Medications Medications Current Medications Ranitidine HCl 150 mg 150 mg BID PO Last administered on 03/13/17 08:46; Admin Dose 150 MG; Start 03/11/17 at 09:00 Dextrose/Sodium Chloride (D5-1/2ns) 1,000 ml @ 100 mls/hr Q10H IV Last administered on 03/12/17 05:58; Admin Dose 100 MLS/HR; Start 03/11/17 at 10: 25 Acetaminophen/ Hydrocodone Bitart ([place] (5/325)) 1 tab Q4H PRN PO PAIN LEVEL 1 -5; Start 03/11/17 at 10:30; Status Future hold Acetaminophen/ Hydrocodone Bitart ([place] (5/325)) 2 tab Q4H PRN PO PAIN LEVEL 6 -10 Last administered on 03/13/17 12:51; Admin Dose 2 TAB; Start 03/11/17 at 10:30; Status Future hold Zolpidem Tartrate (Ambien) 5 mg HS PRN PO INSOMNIA; Start 03/11/17 at 10:30 Prochlorperazine (Compazine) 10 mg Q4H PRN PO NAUSEA AND/OR VOMITING; Start at 10:30 Trimethobenzamide HCl (Tigan) 200 mg Q4H PRN IM NAUSEA AND/OR VOMITING; Start 03/11/17 at 10:30 Ondansetron HCl (Zofran Inj) 4 mg Q6H PRN IV NAUSEA AND/OR VOMITING; Start at 10:30 Al Hydrox/Mg Hydrox/Simethicone (Mag-Al Plus) 15 ml Q4H PRN PO CONSTIPATION; Start 03/11/17 at 10:30 Docusate Sodium (Colace) 100 mg BID PO Last administered on 03/13/17 08:46; Admin Dose 100 MG; Start 03/12/17 at 09:00 Acetaminophen (Tylenol Tab) 650 mg Q4H PRN PO TEMP GREATER THAN 101F OR WELCH; Start 03/11/17 at 10:30 Ascorbic Acid (Vitamin C) 1,000 mg BID PO Last administered on 03/13/17 08:46 ; Admin Dose 1,000 MG; Start 03/12/17 at 09:00 Ferrous Sulfate (Ferrous Sulfate (Ec)) 325 mg TID PO Last administered on 03/13 08:46; Admin Dose 325 MG; Start 03/12/17 at 09:00 Ranitidine HCl (Zantac) 150 mg BID PO ; Start 03/11/17 at 21:00 Diazepam (Valium) 5 mg Q4H PRN PO MUSCLE SPASMS Last administered on 20:45; Admin Dose 5 MG; Start 03/11/17 at 10:30 Diazepam (Valium) 5 mg Q4H PRN IM MUSCLE SPASMS; Start 03/11/17 at 10:30 Phenol (Cepastat Lozenge) 1 lozenge PRN PRN MT SORE THROAT Last administered on 03/11/17 11:54; Admin Dose 1 LOZENGE; Start 03/11/17 at 10:30 Diphenhydramine HCl (Benadryl) 50 mg Q6H PRN PO PRURITUS; Start 03/11/17 at 10 :30 Naloxone HCl (Narcan) 0.2 mg Q2M PRN IV RR 8 BREATHS/MIN OR LESS; Start at 10:30 [place] Chloride (Urecholine) 25 mg PRN PRN PO UNABLE TO VOID Last administered on 03/12/17 08:46; Admin Dose 25 MG; Start 03/12/17 at 08:00 Allopurinol (Zyloprim) 300 mg DAILY PO Last administered on 03/13/17 08:45; Admin Dose 300 MG; Start 03/12/17 at 09:00 Colchicine (Colchicine) 0.6 mg DAILY PO Last administered on 03/13/17 08:45; Admin Dose 0.6 MG; Start 03/13/17 at 09:00 RAYSA CALL MD Mar 13, 2017 13:41
[2017-03-13 14:00] VITALS: BP 119/71; RESP 18
== END 2017-03-13 16:40 | disposition home or self-care (01) | DRG 520 ==
LOC: REC 05:29 → MS1 11:19
PROVIDERS: ADMIT Orthopaedic Surgery; ATTEND Orthopaedic Surgery
PROC: 0SB20ZZ Excision of Lumbar Vertebral Disc, Open Approach (ICD-10-PCS; 2017-03-11)
PROC: 4A11X4G Monitoring of Peripheral Nervous Electrical Activity, Intraoperative, External Approach (ICD-10-PCS; 2017-03-11)
PROC: 01NB0ZZ Release Lumbar Nerve, Open Approach (ICD-10-PCS; principal; 2017-03-11 07:00)
DX: M51.26 Other intervertebral disc displacement, lumbar region (principal); M48.061 Spinal stenosis, lumbar region without neurogenic claudication; M10.271 Drug-induced gout, right ankle and foot
CPT/HCPCS: 72020; 80048; 81001; 85014; 85018; 86850; 86900; 86901; 86920; 87086; 97110; 97116; 97162; 97530; J0690; J1170; J2405; J3010; J7042